=== PATIENT | male | born 1945 | race Asian ===

== ENCOUNTER → 2024-01-26 | Outpatient (CLI) | payer MEDICARE, BC, SELFPAY ==
[2024-01-26 12:19] LABS: Alanine Aminotransferase 17 U/L (10-49); Albumin, Serum 4.3 gm/dL (3.4-4.8); Albumin/Globulin Ratio 1.9 (1.2-2.2); Alkaline Phosphatase 90 U/L (46-116); Anion Gap 5 (7-16); Aspartate Amino Transferase 10 U/L (0-34); BUN/Creatinine Ratio 25 Ratio (12-20); Bilirubin,Total 0.5 mg/dL (0.3-1.2); Blood Urea Nitrogen 20 mg/dL (9-23); Calcium 9.5 mg/dL (8.3-10.6); Calcium (Corrected) 9.5 mg/dL (8.5-10.1); Carbon Dioxide 29.1 mMol/L (20.0-31.0); Cardiac Risk Estimate 2.2 RATIO (4.0-6.7); Chloride 101 mMol/L (98-107); Cholesterol 150 mg/dL (132-200); Creatinine (Component) 0.8 mg/dL (0.6-1.3); Globulin 2.3 gm/dL (2.3-3.5); Glucose 86 mg/dL (74-106); HDL Cholesterol 68 mg/dL (40-60); LDL Cholesterol,Calculated 64 mg/dL (0-130); Osmolality,Calculated 271 (275-295); Potassium 4.7 mMol/L (3.4-5.1); Sodium 135 mMol/L (136-145); Thyroid Stimulating Hormone 0.61 uIU/mL (0.55-4.78); Total Protein 6.6 gm/dL (5.7-8.2); Triglycerides 92 mg/dL (30-150); eGFR > 60 See Note
[2024-01-26 12:23] LABS: Creatinine MALB Rnd Ur 26 mg/dL (30-125); Microalbumin, Random Urine < 3 mg/L (0-300)
== END | disposition home or self-care (01) ==
LOC: COPL 10:45
PROVIDERS: PCP Specialist; Referring Provider Specialist; Visit Provider Specialist
DX: I10 Essential (primary) hypertension (principal); Z12.5 Encounter for screening for malignant neoplasm of prostate
CPT/HCPCS: 36415; 80053; 80061; 82043; 82570; 84153; 84443; G0103

== ENCOUNTER → 2024-04-07 | Outpatient (CLI) | payer MEDICARE, BC, SELFPAY ==
--- NOTE | 2024-04-07 16:45 | XR_ITS ---
Examination: PA lateral chest 2 views Technique: Upright PA lateral chest 2 views Exam date and time: April 07, 2024 1658 hrs. Comparison February 23, 2023 Indications: Coughing beginning 3 days ago. Findings: Early pneumonia right base obscuring detail right hemidiaphragm Minor prominence of ventricle No pulmonary edema Prominent osteopenia Impression: Early pneumonia right base
== END | disposition home or self-care (01) ==
PROVIDERS: PCP Specialist; Referring Provider Specialist; Visit Provider Specialist
DX: J18.9 Pneumonia, unspecified organism (principal); R05.3 Chronic cough
CPT/HCPCS: 71046

== ENCOUNTER → 2024-05-17 | Outpatient (CLI) | payer MEDICARE, BC, SELFPAY ==
--- NOTE | 2024-05-17 16:29 | XR_ITS ---
Examination: PA lateral chest 2 views Technique: Upright PA lateral chest 2 views Exam date and time: May 17, 2024 1641 hrs. Comparison April 07, 2024 Indications: Coughing congestion one month. Findings: No significant cardiac enlargement Accentuation basilar bronchovascular markings No lobar pneumonia Moderate osteopenia Impression: Basilar bronchitis pattern
== END | disposition home or self-care (01) ==
PROVIDERS: PCP Specialist; Referring Provider Specialist; Visit Provider Specialist
DX: R05.9 Cough, unspecified (principal); R09.89 Other specified symptoms and signs involving the circulatory and respiratory systems
CPT/HCPCS: 71046

== ENCOUNTER → 2024-05-27 | Outpatient (CLI) | payer MEDICARE, BC, SELFPAY ==
--- NOTE | 2024-05-27 07:36 | XR_ITS ---
Examination: Renal sonography Renal Doppler sonographic assessment renal arteries Exam date and time: May 27, 2024 0745 hours INDICATIONS: Hypertension, history kidney cystic disease TECHNIQUE AND FINDINGS: Grayscale sonographic images kidneys, arterial ultrasonographic assessment peak systolic velocities renal arteries, resistive indices calculations as well as renal aortic ratios Right kidney 10.5 cm multiple cyst Left kidney 10.1 cm multiple cysts, the largest in the upper pole 9 mm the largest in the upper pole 26 mm No bilateral elevation of peak systolic velocities No bilateral significantly abnormal resistive indices Bilateral normal renal aortic ratios IMPRESSION: No sonographic Doppler findings of renal artery stenosis
== END | disposition home or self-care (01) ==
PROVIDERS: PCP Specialist; Referring Provider Specialist; Visit Provider Specialist
DX: I10 Essential (primary) hypertension (principal)
CPT/HCPCS: 93975

== ENCOUNTER → 2024-05-31 | Outpatient (CLI) | payer MEDICARE, BC, SELFPAY ==
[2024-05-31 17:16] LABS: Basophils # (Auto) 0.1 Thou/mm3 (0.0-0.2); Basophils % (Auto) 2 % (0-2.5); Calcium, Ionized 4.6 mg/dL (4.6-5.6); Eosinophils # (Auto) 0.3 Thou/mm3 (0.0-0.5); Eosinophils % (Auto) 6 % (0-10); Hemoglobin 11.5 g/dL (13.5-16.0); Immature Granulocytes % (Auto) 0 % (0-0); Immature Granulocytes Auto 0.01 Thou/mm3 (0.00-0.00); Lymphocytes # (Auto) 0.9 Thou/mm3 (1.0-4.8); Lymphocytes % (Auto) 21 % (10-50); Mean Corpuscular HGB Conc 32.9 g/dl (31.0-37.0); Mean Corpuscular Volume 70 fL (80-100); Monocytes # (Auto) 0.5 Thou/mm3 (0.0-0.8); Monocytes % (Auto) 11 % (0-12); Neutrophils # (Auto) 2.6 Thou/mm3 (1.8-7.7); Neutrophils % (Auto) 60 % (37-80); Nucleated Red Blood Cell % 0 /100 WBC (0); Platelet Count 150 Thou/mm3 (140-440); RDW Standard Deviation 38.9 fL (35.1-43.9); White Blood Count 4.3 Thou/mm3 (3.8-10.6)
[2024-05-31 17:29] LABS: Parathyroid Hormone Intact 58.5 pg/ml (18.5-88.0)
[2024-05-31 17:35] LABS: Alanine Aminotransferase 13 U/L (10-49); Albumin, Serum 3.9 gm/dL (3.4-4.8); Albumin/Globulin Ratio 1.6 (1.2-2.2); Alkaline Phosphatase 82 U/L (46-116); Anion Gap 7 (7-16); Aspartate Amino Transferase 19 U/L (0-34); BUN/Creatinine Ratio 18 Ratio (12-20); Bilirubin,Total 0.5 mg/dL (0.3-1.2); Blood Urea Nitrogen 18 mg/dL (9-23); Calcium 8.9 mg/dL (8.3-10.6); Carbon Dioxide 25.3 mMol/L (20.0-31.0); Cardiac Risk Estimate 2.3 RATIO (4.0-6.7); Chloride 104 mMol/L (98-107); Cholesterol 136 mg/dL (132-200); Globulin 2.4 gm/dL (2.3-3.5); Glucose 134 mg/dL (74-106); HDL Cholesterol 58 mg/dL (40-60); LDL Cholesterol,Calculated 55 mg/dL (0-130); Osmolality,Calculated 275 (275-295); Potassium 4.2 mMol/L (3.4-5.1); Sodium 136 mMol/L (136-145); Thyroid Stimulating Hormone 0.47 uIU/mL (0.55-4.78); Total Protein 6.3 gm/dL (5.7-8.2); Triglycerides 115 mg/dL (30-150); eGFR > 60 See Note
[2024-05-31 17:37] LABS: Folate 18.39 ng/mL (>5.38); Vitamin B12 639 pg/mL (211-911); Vitamin D 25 Hydroxy Total 43.4 ng/mL (7.3-40.2)
[2024-06-09 06:35] LABS: Vitamin B1 (Thiamine)* 18 nmol/L (8-30)
== END | disposition home or self-care (01) ==
LOC: SLDO 16:27 → COPL 16:30
PROVIDERS: PCP Specialist; Referring Provider Specialist; Visit Provider Specialist
DX: I10 Essential (primary) hypertension (principal); D63.8 Anemia in other chronic diseases classified elsewhere
CPT/HCPCS: 36415; 80053; 80061; 82306; 82330; 82607; 82746; 83970; 84425; 84443; 85025

== ENCOUNTER → 2024-06-30 | Outpatient (CLI) | payer MEDICARE, BC, SELFPAY ==
--- NOTE | 2024-06-30 12:20 | XR_ITS ---
Examination: Bone densitometry Date and time of exam:June 30, 2024 1232 hours INDICATIONS: 79-year-old male with diagnosis age related osteoporosis Technique: Lumbar spine and hip total bone mineralization values of an calculated. Peak reference and age match control results have been displayed. Findings: Lumbar spine total bone mineralization is1.159 gm/cm2. This is 0.6 standard deviations above peak reference. This is 1.8 standard deviations above age-matched controls. Hip total bone mineralization is 0.899 gm/cm2 This is 0.9 standard deviations below peak reference. This is 0.2 standard deviations above age-matched controls Impression: There is normal mineralization based on lumbar spine measurements. There is osteopenia based on hip measurements
== END | disposition home or self-care (01) ==
PROVIDERS: PCP Specialist; Referring Provider Specialist; Visit Provider Specialist
DX: M85.88 Other specified disorders of bone density and structure, other site (principal)
CPT/HCPCS: 77080

== ENCOUNTER → 2024-06-30 | Outpatient (CLI) | payer MEDICARE, BC, SELFPAY ==
[2024-06-30 13:25] LABS: Basophils # (Auto) 0.1 Thou/mm3 (0.0-0.2); Basophils % (Auto) 2 % (0-2.5); Eosinophils # (Auto) 0.3 Thou/mm3 (0.0-0.5); Eosinophils % (Auto) 6 % (0-10); Hematocrit 34.9 % (41.0-53.0); Hemoglobin 11.7 g/dL (13.5-16.0); Immature Granulocytes % (Auto) 0 % (0-0); Immature Granulocytes Auto 0.01 Thou/mm3 (0.00-0.00); Immature Reticulocyte Fraction 18.5 % (2.3-13.4); Lymphocytes # (Auto) 1.1 Thou/mm3 (1.0-4.8); Lymphocytes % (Auto) 24 % (10-50); Mean Corpuscular HGB Conc 33.5 g/dl (31.0-37.0); Mean Corpuscular Hemoglobin 23.5 pg (25.0-35.0); Mean Corpuscular Volume 70 fL (80-100); Monocytes # (Auto) 0.5 Thou/mm3 (0.0-0.8); Monocytes % (Auto) 10 % (0-12); Neutrophils # (Auto) 2.7 Thou/mm3 (1.8-7.7); Neutrophils % (Auto) 58 % (37-80); Nucleated Red Blood Cell % 0 /100 WBC (0); Platelet Count 169 Thou/mm3 (140-440); RDW Standard Deviation 37.7 fL (35.1-43.9); Red Blood Count 4.97 Miln/mm3 (4.50-5.90); Reticulocyte % (Auto) 1.4 % (0.5-1.5); Reticulocyte Absolute Auto 70.1 Biln/L (25.0-75.0); Reticulocyte Hgb Content 26.2 pg (28.0-35.0); White Blood Count 4.6 Thou/mm3 (3.8-10.6)
[2024-06-30 13:45] LABS: Iron 71 mcg/dL (65-175); Percent Iron Saturation 27 % (20-55); Total Iron Binding Capacity 257 mcg/dL (250-425); Unsaturated Iron Binding 186 (225-295)
[2024-06-30 13:47] LABS: Free T3 2.9 pg/mL (2.3-4.2); Thyroid Stimulating Hormone 0.55 uIU/mL (0.55-4.78)
[2024-06-30 14:06] LABS: Free T4 (Free Thyroxine) 1.46 ng/dL (0.89-1.76)
== END | disposition home or self-care (01) ==
PROVIDERS: PCP Specialist; Referring Provider Specialist; Visit Provider Specialist
DX: D50.0 Iron deficiency anemia secondary to blood loss (chronic) (principal); R94.6 Abnormal results of thyroid function studies
CPT/HCPCS: 36415; 83540; 83550; 84439; 84443; 84481; 85025; 85046

== ENCOUNTER → 2024-09-19 | Outpatient (CLI) | payer MEDICARE, BC, SELFPAY ==
[2024-09-19 12:13] LABS: Basophils # (Auto) 0.1 Thou/mm3 (0.0-0.2); Basophils % (Auto) 1 % (0-2.5); Eosinophils # (Auto) 0.3 Thou/mm3 (0.0-0.5); Eosinophils % (Auto) 5 % (0-10); Hematocrit 36.4 % (41.0-53.0); Hemoglobin 12.3 g/dL (13.5-16.0); Immature Granulocytes Auto 0.02 Thou/mm3 (0.00-0.00); Immature Reticulocyte Fraction 24.9 % (2.3-13.4); Lymphocytes # (Auto) 1.0 Thou/mm3 (1.0-4.8); Lymphocytes % (Auto) 18 % (10-50); Mean Corpuscular HGB Conc 33.8 g/dl (31.0-37.0); Mean Corpuscular Hemoglobin 23.7 pg (25.0-35.0); Mean Corpuscular Volume 70 fL (80-100); Monocytes # (Auto) 0.5 Thou/mm3 (0.0-0.8); Monocytes % (Auto) 8 % (0-12); Neutrophils # (Auto) 3.9 Thou/mm3 (1.8-7.7); Neutrophils % (Auto) 67 % (37-80); Nucleated Red Blood Cell # 0.00 Thou/mm3 (0.00-0.00); Nucleated Red Blood Cell % 0 /100 WBC (0); Platelet Count 147 Thou/mm3 (140-440); RDW Standard Deviation 37.2 fL (35.1-43.9); Red Blood Count 5.19 Miln/mm3 (4.50-5.90); Reticulocyte % (Auto) 1.4 % (0.5-1.5); Reticulocyte Absolute Auto 73.7 Biln/L (25.0-75.0); Reticulocyte Hgb Content 26.0 pg (28.0-35.0); White Blood Count 5.8 Thou/mm3 (3.8-10.6)
[2024-09-19 12:42] LABS: Iron 80 mcg/dL (65-175); Percent Iron Saturation 29 % (20-55); Total Iron Binding Capacity 267 mcg/dL (250-425); Unsaturated Iron Binding 187 (225-295)
[2024-09-19 12:47] LABS: Alanine Aminotransferase 10 U/L (10-49); Albumin, Serum 4.0 gm/dL (3.4-4.8); Albumin/Globulin Ratio 1.7 (1.2-2.2); Alkaline Phosphatase 73 U/L (46-116); Anion Gap 8 (7-16); Aspartate Amino Transferase 19 U/L (0-34); BUN/Creatinine Ratio 17 Ratio (12-20); Bilirubin,Total 0.6 mg/dL (0.3-1.2); Blood Urea Nitrogen 15 mg/dL (9-23); Calcium 9.1 mg/dL (8.3-10.6); Calcium (Corrected) 9.1 mg/dL (8.5-10.1); Carbon Dioxide 27.7 mMol/L (20.0-31.0); Cardiac Risk Estimate 2.2 RATIO (4.0-6.7); Chloride 100 mMol/L (98-107); Cholesterol 141 mg/dL (132-200); Creatinine (Component) 0.9 mg/dL (0.6-1.3); Globulin 2.3 gm/dL (2.3-3.5); Glucose 99 mg/dL (74-106); HDL Cholesterol 65 mg/dL (40-60); LDL Cholesterol,Calculated 46 mg/dL (0-130); Osmolality,Calculated 272 (275-295); Potassium 4.6 mMol/L (3.4-5.1); Sodium 136 mMol/L (136-145); Thyroid Stimulating Hormone 0.39 uIU/mL (0.55-4.78); Total Protein 6.3 gm/dL (5.7-8.2); Triglycerides 152 mg/dL (30-150); eGFR > 60 See Note
== END | disposition home or self-care (01) ==
PROVIDERS: PCP Specialist; Referring Provider Specialist; Visit Provider Specialist
DX: I10 Essential (primary) hypertension (principal); D63.8 Anemia in other chronic diseases classified elsewhere; E78.2 Mixed hyperlipidemia
CPT/HCPCS: 36415; 80053; 80061; 83540; 83550; 84443; 85025; 85046